=== PATIENT | male | born 1945 | race Caucasian/White ===

== ENCOUNTER 2018-03-07 05:48 | Day surgery (SDC) | payer MEDICARE ==
[2018-03-06 11:13] VITALS: BMI 28.3
[2018-03-07] MEDS ORDERED: Bupivacaine HCl 0.5%/Epinephrine 1:200,000/PF 30 ml Vial ONE (06:19)
[2018-03-07] MEDS ORDERED: Thrombin 5000 UNITS/5 ML VIAL ONE (06:19)
[2018-03-07] MEDS ORDERED: Fentanyl 250 MCG/5 ML VIAL ONE (06:30)
[2018-03-07] MEDS ORDERED: Clindamycin/D5W 900 mg/50 ml Premix Bag ONE (06:35)
[2018-03-07] MEDS ORDERED: Levofloxacin 500 mg/D5W 100 ml Premix Bag ONE (06:35)
--- NOTE | 2018-03-07 09:04 | OP ---
DATE OF PROCEDURE: 03/07/2018 SURGEON: Desmond Bourne M.D. SUSTAINABLE SYSTEMS ANALYST: Duke Pena PA-C INDICATION: Pain. DIAGNOSIS: Lumbar stenosis. PROCEDURE: L4-5 lumbar decompression. ANESTHESIA: General. TECHNIQUE: The patient was brought into the operating room and placed under general anesthesia. He was flipped from a supine to a prone position on the operating room table. A linear incision was julius nned over the L4-L5 segment. After prepping and draping and after an appropriate operative pause, th e incision was created. The soft tissues were swept away from midline. Self-retaining retractors we re placed in the wound for optimal exposure. After confirming the appropriate level with C-arm fluor oscopy, an Adson rongeur was used to remove the spinous process of L4 and L5. High-speed cutting dri ll bit as well as 2, 3 and 4-mm Kerrisons were then used to perform a laminectomy. At the L4-5 segme nt the laminectomy was extended laterally to encompass the medial aspect of the facet joint in order to adequately decompress the descending L5 nerve roots and the lateral recesses. The wound was then irrigated. Hemostasis was maintained throughout. The wound was then closed in anatomic layers and a pressure dressing was applied. There were no known procedural complications.
[2018-03-07] MEDS ORDERED: Fentanyl 100 MCG/2 ML VIAL ONE ×2 (09:08→09:24)
[2018-03-07] MEDS ORDERED: Tamsulosin HCl 0.4 MG CAP ONE (09:18)
[2018-03-07] MEDS ORDERED: Ondansetron HCl/PF 4 MG/2 ML Vial ONE (15:03)
[2018-03-07] MEDS ORDERED: ePHEDrine/0.9% NaCl/PF SYRINGE 50 mg/10 ml ONE (15:03)
[2018-03-07] MEDS ORDERED: Glycopyrrolate 0.2 MG/ML 5 ML SYRINGE ONE (15:03)
[2018-03-07] MEDS ORDERED: PROPOFOL 200 MG/20 ML VIAL ONE (15:03)
[2018-03-07] MEDS ORDERED: Lidocaine 1% PF 5 ML VIAL ONE (15:03)
== END 2018-03-07 17:20 | disposition home or self-care (01) ==
LOC: SDC 05:48
PROVIDERS: ATTEND Neurological Surgery
PROC: 01NB0ZZ Release Lumbar Nerve, Open Approach (ICD-10-PCS; principal; 2018-03-07)
DX: M48.061 Spinal stenosis, lumbar region without neurogenic claudication (principal); Z79.899 Other long term (current) drug therapy; Z88.0 Allergy status to penicillin
CPT/HCPCS: 76001; 96374; J0670; J1956; J2001; J2405; J2704; J3010; J3490